=== PATIENT | female | born 1995 | race African-American/Black ===

== ENCOUNTER 2018-04-12 22:58 | Emergency (ER) | payer BC ==
[~2018-04-12] VITALS: Ht 144.8 cm; Wt 61.7 kg
[~2018-04-12 22:58] MED LIST: NORCO 5-325 TA1 EACH PO; OMEPRAZOLE; SINGULAIR 10 MG10 M1 PO; [UNRECOGNIZED DRUG - OTHER]
[2018-04-12 23:09] VITALS: BP 127/82
[2018-04-12] MEDS ORDERED: AMITRIPTYLINE H25 M2 (23:15)
[2018-04-12] MEDS ORDERED: NEURONTIN 300300 M1 (23:15)
[2018-04-12] MEDS ORDERED: NORCO 5-325 TA1 EACH PO (23:40)
== END 2018-04-12 23:50 | disposition home or self-care (01) ==
LOC: M.ERS 22:58
DX: T23.102A Burn of first degree of left hand, unspecified site, initial encounter (principal); T31.0 Burns involving less than 10% of body surface; E11.9 Type 2 diabetes mellitus without complications; Z88.6 Allergy status to analgesic agent

== ENCOUNTER 2018-07-19 05:47 | Emergency (ER) | payer BC ==
[~2018-07-19] VITALS: Ht 144.8 cm; Wt 63.0 kg
[~2018-07-19 05:47] MED LIST changes: +AMITRIPTYLINE H25 M2; +NEURONTIN 300300 M1
[2018-07-19 06:30] LABS: URINE BILIRUBIN NEGATIVE (Negative); URINE BLOOD NEGATIVE (Negative); URINE CLARITY CLEAR; URINE COLOR YELLOW; URINE GLUCOSE-RANDOM NEGATIVE (Negative); URINE KETONES NEGATIVE (Negative); URINE LEUKOCYTES-REFLEX NEGATIVE (Negative); URINE NITRITE-REFLEX NEGATIVE (Negative); URINE PROTEIN NEGATIVE (Negative); URINE SPECIFIC GRAVITY >= 1.030 (1.005-1.030); URINE UROBILINOGEN 0.2 E.U./dl (0.2-1.0)
[2018-07-19 07:38] VITALS: BP 105/64
== END 2018-07-19 07:38 | disposition home or self-care (01) ==
LOC: M.ERS 05:47
PROVIDERS: Emergency Medicine
DX: S00.03XA Contusion of scalp, initial encounter (principal); E11.9 Type 2 diabetes mellitus without complications; Z88.8 Allergy status to other drugs, medicaments and biological substances; W18.00XA Striking against unspecified object with subsequent fall, initial encounter; Y93.89 Activity, other specified; Y92.89 Other specified places as the place of occurrence of the external cause; Y99.8 Other external cause status

== ENCOUNTER 2019-12-05 05:34 | Inpatient (IN) | payer OTHER ==
[2019-12-05] VITALS (15 sets, daily range): BP systolic 98–140; BP diastolic 51–92
[~2019-12-05] VITALS: Ht 144.8 cm; Wt 75.7 kg
[~2019-12-05 05:34] MED LIST changes: -AMITRIPTYLINE H25 M2; +AMITRIPTYLINE H25 M2 PO; -NEURONTIN 300300 M1; +NEURONTIN 300M300 M2 PO
[2019-12-05 05:51] LABS: URINE BILIRUBIN NEGATIVE (Negative); URINE BLOOD NEGATIVE (Negative); URINE CLARITY CLEAR; URINE COLOR STRAW; URINE GLUCOSE-RANDOM NEGATIVE (Negative); URINE KETONES NEGATIVE (Negative); URINE LEUKOCYTES-REFLEX NEGATIVE (Negative); URINE NITRITE-REFLEX NEGATIVE (Negative); URINE PROTEIN NEGATIVE (Negative); URINE SPECIFIC GRAVITY <= 1.005 (1.005-1.030); URINE UROBILINOGEN 0.2 E.U./dl (0.2-1.0)
[2019-12-05] MEDS ORDERED: VICTOZA0.6 MG/0.1 SUBQ (05:54)
[2019-12-05] MEDS ORDERED: CLONAZEPAM 0.50.5 M1 PO (05:55)
[2019-12-05 05:57] LABS: AMP/METHAMP Negative (Negative); BARBITURATES Negative (Negative); BENZODIAZEPINES Negative (Negative); COCAINE Negative (Negative); METHADONE Negative (Negative); OPIATES Negative (Negative); PCP Negative (Negative); THC Negative (Negative)
[2019-12-05 06:08] LABS: ABSOLUTE BASOPHILS 0.1 thou/uL (0.0-0.2); ABSOLUTE EOSINOPHILS 0.2 thou/uL (0.0-0.7); ABSOLUTE LYMPHOCYTES 2.5 thou/uL (0.8-5.3); ABSOLUTE MONOCYTES 0.7 thou/uL (0.0-1.2); ABSOLUTE NEUTROPHILS 5.3 thou/uL (1.6-8.1); BASOPHILS 0.9 %; EOSINOPHILS 2.8 %; HEMATOCRIT 41.6 % (37.0-47.0); HEMOGLOBIN 14.2 gm/dL (12.0-15.0); LYMPHOCYTES 28.5 %; MCH 28.6 pg (26.0-34.0); MCHC 34.2 g/dL (28.0-37.0); MCV 83.5 fL (80.0-100.0); MONOCYTES 7.7 %; MPV 7.6 fl. (7.2-11.1); NUCLEATED RBCS 0 /100WBC; PLATELET COUNT* 322 thou/uL (150-400); POLYS 60.1 %; RBC 4.98 mil/uL (4.20-5.00); RDW-CV 13.4 % (10.5-14.5); WBC 8.8 thou/uL (4.0-11.0)
[2019-12-05 06:36] LABS: CALCIUM 8.3 mg/dL (8.5-10.1); CREATININE 0.9 mg/dL (0.6-1.3); POTASSIUM 3.7 mmol/L (3.5-5.1)
[2019-12-05 06:41] LABS: ALBUMIN 4.1 g/dL (3.4-5.0); TOTAL BILIRUBIN 0.3 mg/dL (<0.1-1.0); TOTAL PROTEIN 7.5 g/dL (6.4-8.2)
[2019-12-05 06:45] LABS: ALCOHOL 133 mg/dL (<10); SALICYLATE < 2.8 mg/dL (2.8-20.0)
--- NOTE | 2019-12-05 06:45 | NUR ---
PT IS CURRENTLY SLEEPING AND NOT RESPONSIVE TO VERBAL STIMULI. MOTHER IS IN THE ROOM. VITAL SIGNS ARE STABLE
[2019-12-05 06:46] LABS: ACETAMINOPHEN < 2 ug/mL (10-30)
--- NOTE | 2019-12-05 08:25 | NUR ---
DR. OREILLY CONSULTING WITH PATIENT AT THIS TIME.
--- NOTE | 2019-12-05 08:31 | NUR ---
PER DR. OREILLY, AFTER EVALUATION OF THE PATIENT, HE REPORTS THE PATIENT REFUSED TO ANSWER ANY QUESTIONS OTHER THAN ANSWERING "NO" TO THE QUESTION OF IF SHE IS ALLERGIC TO ANYTHING. DR. OREILLY STATES THE PATIENT CAN EAT AND DRINK IF SHE IS AWAKE, SITTING UP AND TALKING. CURRENTLY PATIENT'S VITAL SIGNS ARE STABLE, SHE IS LYING ON LEFT SIDE IN BED CONNECTED TO WINDOWS SERVER ENGINEER. SITTER AT BEDSIDE. PT'S MOTHER STEPPED OUT TO WAITING ROOM.
[2019-12-06] VITALS (8 sets, daily range): BP systolic 93–132; BP diastolic 40–84
--- NOTE | 2019-12-06 06:13 | NUR ---
ALL NEEDS MET, ALL ASSESSMENTS COMPLETED CHARTED, CONSTANT 1:1 OBSERVATION CONTINUED. VSS. PT DROWSY BUT OTHERWISE ALERT AND ORIENTED.
--- NOTE | 2019-12-06 09:50 | NUR ---
ICU rounds: Pt admitted for SI, Pt took 30 clonazepam and ETOH. Pt reports "family drama at home and stated that her BF broke up with her." 2 affadavits on the chart. Tele psych eval to be completed today, Pt will likely need inpt pysch. Pt is a HR ADVISOR. A&O, but drowsy. Continue ICU status.
--- NOTE | 2019-12-06 14:18 | EKG ---
[place] [address] ELECTROCARDIOGRAM REPORT Name: SONNY REINA Room: [address] ADM IN M.R.#: [id number] Admission: 12/05/19 Attend Phys: Shaun Regalado Discharge: Date of : 89 Date of Service: 12/05/1946 Report #: [id number] THIS REPORT FOR: //name// [facility] ED Test Date: 2019-12-05 Test Time: 05:46:23 Pat Name: SONNY REINA Department: Room: [address] Gender: F Wool Presser: JULIANO : 1995 Requested By: Brunilda Barahona Order Number: [id number] MD: Danish Mahoney Measurements Intervals [place] Rate: 109 P: 56 NH: 131 QRS: 63 QRSD: 79 T: 25 QT: 321 QTc: 433 Interpretive Statements Sinus tachycardia No previous ECG available for comparison Electronically Signed On 12-06-2019 14:17:00 CDT by Danish Mahoney [email or web address] <ELECTRONICALLY SIGNED> By: Danish Mahoney MD, [facility] 12/06/19 1417 Danish Mahoney MD, FACC /EPI
--- NOTE | 2019-12-06 16:14 | NUR ---
PT IS A/O X4 BUT DROWSY AT TIMES,VSS,CONTINUOUS VULCANIZING MACHINE OPERATOR IN PLACE.PT DOWNGRADED TO TELEMETRY STATUS.TELE PSYCH COMPLETED WITH RECOMMENDATIONS RECEIVED AND PLACED ON CHART.SI PRECAUTIONS IN PLACE.CALL LIGHT WITHIN REACH.WILL CONTINUE TO MONITOR FOR DURATION OF SHIFT.
--- NOTE | 2019-12-06 17:42 | NUR ---
PT TO TRANSFER TO TELEMETRY ROOM 205.REPORT CALLED TO NURSE.ALL PERSONAL BELONGINGS GIVEN TO NURSING STAFF.
--- NOTE | 2019-12-06 18:26 | NUR ---
PT TRANSFERED FROM ICU , ON RA, IV FLUID INFUSING AT 100 PER HOUR SITTER 1:1 IN ROOM WITH PT. VSS. TRACING SR ON CLINICAL DATA MANAGER.
[2019-12-07] VITALS: BP 112/58
[2019-12-07 04:00] VITALS: BP 107/66
--- NOTE | 2019-12-07 07:54 | NUR ---
PT A+O X4. CALM AND COOPERATIVE. MAINTAINED GOOD EYE CONTACT WHEN SPEAKING WITH STAFF AND ENGAGED IN QUESTIONS ABOUT CARE AND TREATMENT. PT DENIES SI OR THOUGHTS. PT DID REPORT "FEELING DEPRESSSED ABOUT ALOT OF PERSONAL ISSUES LATELY." LAST NIGHT PT STATED, "I WAS REALLY DRUNK WHEN I CAME IN AND SLEPT ALL DAY; BUT I HAVENT FELT SUICIDAL SINCE I GOT HERE." PT REPORTED THAT SHE WAS TOLD SHE WAS ON A 96HR HOLD AND REQUESTED INFORMATION ABOUT THE DATE AND TIME THE HOLD WAS INITIATED. DAY RN, SUSTAINABILITY OFFICER, AND CREDIT CARD CLERK NOTIFIED PT REQUESTING THIS INFORMATION AND THIS RN WAS UNABLE TO LOCATE THIS INFORMATION FOR PT. PT UPDATED THIS WAS PASSED ON IN REPORT AND THAT PT HAS QUESTIONS ABOUT A 96 HR HOLD. PT WAS GIVEN BENADRYL X 2 THIS SHIFT TO HELP WITH RESTLESSNESS (PT STATES SHE USUALLY WORKS NIGHTS) AND SEASONAL ALLERGIES. 1:1 SITTER @ BEDSIDE FOR MONITORING.
[2019-12-07 11:36] VITALS: BP 97/55
--- NOTE | 2019-12-07 12:37 | NUR ---
SW faxed referral to in psychiatric facility [facility] and called to check on status of referral. Intake said that they would need to call SW back when they have an update on whether or not they can accept pt. SW to continue to follow to assist with safe dc planning.
[2019-12-07 13:07] LABS: ALBUMIN 3.4 g/dL (3.4-5.0); CALCIUM 8.4 mg/dL (8.5-10.1); CREATININE 0.7 mg/dL (0.6-1.3); POTASSIUM 3.7 mmol/L (3.5-5.1); TOTAL BILIRUBIN 0.3 mg/dL (<0.1-1.0); TOTAL PROTEIN 6.6 g/dL (6.4-8.2)
[2019-12-07 15:51] VITALS: BP 98/56
[2019-12-07 20:00] VITALS: BP 129/44
--- NOTE | 2019-12-08 07:58 | NUR ---
PT A+O X4. CALM AND COOPERATIVE. BENADRYL GIVEN X 2. PT C/O ITCHING FROM EDI ARCHITECT LEADS. BENADRYL "HELPED SOME" BUT PT STILL WANTED TO REMOVE LEADS AFTER MIDNIGHT TELE CHECKS. PT DENIED SI. SLEEPY MOST OF SHIFT. SITTER @ BEDSIDE FOR SAFETY. CALL LIGHT IN REACH. HOURLY ROUNDING FOR SAFETY.
[2019-12-08] MEDS ORDERED: LEXAPRO 10 MG T10 M1 PO (12:03)
[2019-12-08 12:05] VITALS: BP 129/44
--- NOTE | 2019-12-08 12:26 | NUR ---
Pt discharging to home today. requested that a no harm contract be signed, nurse to have Pt sign and place copy on Pt's chart. No other needs.
--- NOTE | 2019-12-08 13:15 | NUR ---
ASSUMED PT CARE AT 0700, PT A&O X4, VSS, RA, CLASSROOM TECHNOLOGY TECHNICIAN TRACING SINUS RHYTHM, SI PRECAUTIONS IN PLACE, SITTER AT BEDSIDE. PT DISCHARGED HOME AT APPROX 1300. PT EDUCATED ON ALL DISCHARGE INSTRUCTIONS INCLUDING MEDICATIONS AND FOLLOW UP APPTS. PT SET UP WITH [facility], NO INTENT CONTRACT SIGNED AND PLACED IN CHART. IV AND CLASSROOM TECHNOLOGY TECHNICIAN REMOVED, HOURLY ROUNDING COMPLETED.
== END 2019-12-08 13:00 | disposition home or self-care (01) | DRG 917 ==
LOC: M.ERS 05:34 → M.ICU 06:06 → M.TBA-ER 06:06 → M.ICU 09:38 → M.2W 12-06 17:44
PROVIDERS: Emergency Medicine; Family Medicine; ADMIT Internal Medicine
DX: T42.4X2A Poisoning by benzodiazepines, intentional self-harm, initial encounter (principal); G92 Toxic encephalopathy; E11.9 Type 2 diabetes mellitus without complications; G89.4 Chronic pain syndrome; F17.210 Nicotine dependence, cigarettes, uncomplicated; K52.81 Eosinophilic gastritis or gastroenteritis; F32.9 Major depressive disorder, single episode, unspecified; Y92.89 Other specified places as the place of occurrence of the external cause; Z79.899 Other long term (current) drug therapy; Z72.89 Other problems related to lifestyle; Z88.8 Allergy status to other drugs, medicaments and biological substances; Z91.09 Other allergy status, other than to drugs and biological substances

== ENCOUNTER 2020-08-15 09:08 | Emergency (ER) | payer OTHER ==
[~2020-08-15] VITALS: Ht 144.8 cm; Wt 77.1 kg
[~2020-08-15 09:08] MED LIST changes: +CLONAZEPAM 0.50.5 M1 PO; +LEXAPRO 10 MG T10 M1 PO; +VICTOZA0.6 MG/0.1 SUBQ
[2020-08-15 11:56] VITALS: BP 138/74
== END 2020-08-15 11:57 | disposition home or self-care (01) ==
LOC: M.ERS 09:08
DX: I82.4Z2 Acute embolism and thrombosis of unspecified deep veins of left distal lower extremity (principal); E11.9 Type 2 diabetes mellitus without complications; Z79.899 Other long term (current) drug therapy; Z88.8 Allergy status to other drugs, medicaments and biological substances

== ENCOUNTER 2021-03-01 14:48 | Emergency (ER) | payer OTHER ==
[~2021-03-01] VITALS: Ht 144.8 cm; Wt 72.1 kg
[2021-03-01] MEDS ORDERED: ZPAK PO (15:56)
[2021-03-01] MEDS ORDERED: PREDNISONE 20 M20 MG PO (15:56)
[2021-03-01] MEDS ORDERED: APAP W/CODEINE1 TA2 PO (15:56)
[2021-03-01] MEDS ORDERED: PROAIR HFA8.5 GM INH (15:56)
[2021-03-01 16:00] VITALS: BP 141/70
== END 2021-03-01 16:00 | disposition home or self-care (01) ==
LOC: M.ERS 14:48
DX: J18.9 Pneumonia, unspecified organism (principal); Z20.822 Contact with and (suspected) exposure to COVID-19; E11.9 Type 2 diabetes mellitus without complications; N80.9 Endometriosis, unspecified; Z88.6 Allergy status to analgesic agent

== ENCOUNTER 2021-08-01 00:42 | Emergency (ER) | payer OTHER ==
[~2021-08-01] VITALS: Ht 144.8 cm; Wt 74.8 kg
[~2021-08-01 00:42] MED LIST changes: +APAP W/CODEINE1 TA2 PO; +PREDNISONE 20 M20 MG PO; +PROAIR HFA8.5 GM INH; +ZPAK PO
[2021-08-01] MEDS ORDERED: LOVENOX120 MG/0.8 (00:48)
[2021-08-01] MEDS ORDERED: AUGMENTIN 875-1 EACH PO (01:33)
[2021-08-01 02:00] VITALS: BP 137/92
== END 2021-08-01 02:00 | disposition home or self-care (01) ==
LOC: M.ERS 00:42
DX: S60.416A Abrasion of right little finger, initial encounter (principal); S60.412A Abrasion of right middle finger, initial encounter; E11.9 Type 2 diabetes mellitus without complications; Z79.51 Long term (current) use of inhaled steroids; Z79.891 Long term (current) use of opiate analgesic; Z79.899 Other long term (current) drug therapy; Z88.6 Allergy status to analgesic agent; Z91.048 Other nonmedicinal substance allergy status; W50.3XXA Accidental bite by another person, initial encounter; Y93.89 Activity, other specified; Y92.89 Other specified places as the place of occurrence of the external cause; Y99.8 Other external cause status

== ENCOUNTER → 2021-08-21 | Outpatient (CLI) | payer OTHER ==
[~2021-08-21] MED LIST changes: +AUGMENTIN 875-1 EACH PO; +LOVENOX120 MG/0.8
== END ==
LOC: M.MRI 07:30
PROVIDERS: ATTEND Registered Nurse Diabetes Educator
DX: M25.841 Other specified joint disorders, right hand (principal)